=== PATIENT | female | born 1980 | race Hispanic/Latino ===

== ENCOUNTER → 2016-11-01 | Outpatient (CLI) | payer OTHER ==
--- NOTE | 2016-11-01 16:22 | MRI ---
EXAM DESCRIPTION: Lumbar Spine w/o Contrast CLINICAL HISTORY: M54.5, M54.41, M54.42. Low back pain with pain and tingling down both legs. COMPARISON: None Available. TECHNIQUE: MRI of the lumbar spine is performed according to our usual protocol with axial and sagittal multi sequence imaging. FINDINGS: The designated L5-S1 disc space is on axial T2 image 3. There is good alignment of the lumbar spine. There is no acute fracture or destructive osseous lesion. The conus medullaris terminates normally. T12-L1: Disc desiccation with mild disc narrowing. No significant disc bulge, spinal canal, or neural foraminal stenosis. L1-2: No significant findings. L2-3: No significant findings. L3-4: Disc desiccation with mild disc narrowing. Mild to moderate bilateral facet hypertrophy with ligamentum flavum thickening. Posterior annular tear with generalized posterior disc bulging and a superimposed broad-based central disc protrusion measuring a total of 3 to 4 mm in AP extent. There is multifactorial moderate spinal canal stenosis with residual AP diameter of the thecal sac measuring 6.5 mm. Mild to moderate bilateral neural foraminal stenosis. Material contacts both exiting L3 nerve roots. L4-5: Disc desiccation with mild posterior disc narrowing. Posterior annular tear. Mild to moderate facet hypertrophy with ligamentum flavum thickening. 3 mm posterior disc bulge with multifactorial moderate spinal canal stenosis. Residual AP diameter of the thecal sac measures 7.1 mm. Moderate bilateral neural foraminal stenosis. Material contacts both exiting L4 nerve roots. L5-S1: Disc desiccation with mild disc narrowing. Mild to moderate bilateral facet hypertrophy. 2 to 3 mm posterior disc bulge and superimposed broad-based left paracentral disc protrusion measuring a total of about 21 x 6 mm (transverse X AP) in total extent. Moderate to high-grade left lateral recess narrowing is present, or material abuts and displaces the transiting left S1 nerve root. There is mild right and severe left neural foraminal stenosis. Material contacts the exiting left L5 nerve root. The spinal canal is patent. IMPRESSION: 1. Disc degeneration and facet degenerative changes in the lower lumbar spine. At L3-L4, there is multifactorial moderate spinal canal stenosis and mild to moderate bilateral neural foraminal stenosis. 2. At L4-L5, there is moderate spinal canal stenosis and moderate bilateral neural foraminal stenosis. 3. At L5-S1, there is moderate to high-grade left lateral recess narrowing, severe left neural foraminal stenosis, and mild right neural foraminal stenosis. Electronically signed by: Cal Colbert MD 11/01/2016 4:21 PM CDT
== END | disposition home or self-care (01) ==
LOC: MRI 13:16
PROVIDERS: ATTEND Obstetrics & Gynecology
DX: M54.41 Lumbago with sciatica, right side (principal); M54.42 Lumbago with sciatica, left side

== ENCOUNTER → 2016-11-23 | Outpatient (CLI) | payer OTHER | LOC: LAB.O 11:58 | PROVIDERS: ATTEND Psychiatry & Neurology Neurology | DX: M45.0 Ankylosing spondylitis of multiple sites in spine (principal); M35.1 Other overlap syndromes; M54.13 Radiculopathy, cervicothoracic region; M54.12 Radiculopathy, cervical region; M54.16 Radiculopathy, lumbar region; I73.00 Raynaud's syndrome without gangrene; G25.89 Other specified extrapyramidal and movement disorders; M06.9 Rheumatoid arthritis, unspecified; D86.9 Sarcoidosis, unspecified; M35.00 Sjogren syndrome, unspecified; M32.10 Systemic lupus erythematosus, organ or system involvement unspecified; I77.9 Disorder of arteries and arterioles, unspecified; R41.3 Other amnesia ==